=== PATIENT | male | born 1975 ===

== ENCOUNTER 2021-04-29 11:56 | Outpatient (CLI) | payer MEDICARE, MEDICAID ==
--- NOTE | 2021-04-29 16:17 | XRAY Report ---
PROCEDURE: Shoulder 3 View LT INDICATIONS: L SHOULDER PX TECHNIQUE: 4 views of the shoulder were acquired. COMPARISON: None. FINDINGS: Bones: No fractures or dislocations. No suspicious bony lesions. Visualized ribs appear intact. Soft tissues: No suspicious soft tissue calcifications. IMPRESSION: No evidence acute bony abnormality of the left shoulder. If clinical suspicion and/or symptoms persist, further assessment with repeat plain films or advanced imaging (e.g., CT, MRI, or bone scan) may be helpful for further assessment. Reviewed by: Edson Mujica MD on 04/29/2021 4:16 PM PDT Approved by: Edson Mujica MD on 04/29/2021 4:16 PM PDT Station ID: [id number]
== END 2021-04-29 23:59 ==
LOC: DI.N 11:56
PROVIDERS: ATTEND Physician Assistant
DX: M25.512 Pain in left shoulder (principal)

== ENCOUNTER 2023-03-23 09:47 | Outpatient (CLI) | payer MEDICARE, MEDICAID ==
--- NOTE | 2023-03-23 10:41 | XRAY Report ---
PROCEDURE: Cervical Spine 2 View INDICATIONS: CERVICALGIA, DORSALGIA, SHOULDER PAIN TECHNIQUE: 3 view(s) of the cervical spine were acquired. COMPARISON: None. FINDINGS: Bones: No fractures or dislocations to the T1 level. Mild degenerative disc disease at C5-6 and C7- T1 as evidenced by minimal disc space narrowing. The lateral masses of C1 appear intact on the odonto id view. No suspicious bony lesions. Soft tissues: No prevertebral soft tissue swelling. IMPRESSION: Mild degenerative disc disease at C5-6 and C7-T1 Reviewed by: Usman Toledo on 03/23/2023 10:40 AM PDT Approved by: Usman Toledo on 03/23/2023 10:40 AM PDT Station ID: [id number]
--- NOTE | 2023-03-23 10:47 | XRAY Report ---
PROCEDURE: Shoulder 3 View BILAT INDICATIONS: SHOULDER PAIN TECHNIQUE: 4 views of the shoulder were acquired. COMPARISON: 04/29/2021 FINDINGS: Bones: The right acromioclavicular joint has no radiographic abnormality. The left acromioclavicular joint demonstrates 7 mm superior displacement consistent with a type II stranding. No suspicious yol[place] lesions. Visualized ribs appear intact. Soft tissues: No suspicious soft tissue calcifications. The visualized lungs are within normal limi ts. IMPRESSION: 1. Normal right acromioclavicular joint. Next line 2. Left AC joint 7 mm superior displacement consistent with a type II strain. Reviewed by: Usman Toledo on 03/23/2023 10:46 AM PDT Approved by: Usman Toledo on 03/23/2023 10:46 AM PDT Station ID: [id number]
--- NOTE | 2023-03-23 10:48 | XRAY Report ---
PROCEDURE: Lumbar Spine 2 View INDICATIONS: CERVICALGIA, DORSALGIA, SHOULDER PAIN TECHNIQUE: 3 views of the lumbar spine were acquired. COMPARISON: None. FINDINGS: Bones: 5 [id number] vertebrae are present. There is normal bony alignment. No vertebral body compression fractures. No suspicious bony lesions. Soft tissues: Overlying bowel gas pattern is normal. No suspicious soft tissue calcifications. IMPRESSION: Normal lumbar spine Reviewed by: Usman Toledo on 03/23/2023 10:47 AM PDT Approved by: Usman Toledo on 03/23/2023 10:47 AM PDT Station ID: [id number]
--- NOTE | 2023-03-23 10:51 | XRAY Report ---
PROCEDURE: Thoracic Spine 2 View INDICATIONS: CERVICALGIA, DORSALGIA, SHOULDER PAIN TECHNIQUE: 2 views of the thoracic spine were acquired. COMPARISON: None. FINDINGS: Bones: No fractures or dislocations. No suspicious bony lesions. Leftward curvature of the cervicot horacic spine with a Jiang angle of 10 degrees. 12 pairs of ribs are noted, and appear intact where vi sualized. Soft tissues: No paravertebral stripe thickening. IMPRESSION: No acute bony abnormality. No significant degenerative change. Dextroscoliosis of the cervicothoracic spine. Reviewed by: Usman Toledo on 03/23/2023 10:49 AM PDT Approved by: Usman Toledo on 03/23/2023 10:49 AM PDT Station ID: [id number]
== END 2023-03-23 09:48 | disposition home or self-care (01) ==
LOC: DI 09:47
PROVIDERS: ATTEND Internal Medicine
DX: M54.2 Cervicalgia (principal); M54.6 Pain in thoracic spine; M54.50 Low back pain, unspecified; M25.511 Pain in right shoulder; S43.102A Unspecified dislocation of left acromioclavicular joint, initial encounter

== ENCOUNTER 2023-07-20 08:15 | Outpatient (CLI) | payer MEDICARE, MEDICAID ==
--- NOTE | 2023-07-20 22:49 | XRAY Report ---
PROCEDURE: Shoulder 1 View LT INDICATIONS: LEFT SHOULDE PAIN TECHNIQUE: Single axillary view of the shoulder were acquired. COMPARISON: 04/29/2021 FINDINGS: Bones: Single axillary view of the left shoulder demonstrates mild cortical irregularity of the post erior left humeral head. No definite acute fractures seen. Normal glenohumeral alignment. No suspicio us osseous lesions. Soft tissues: No suspicious soft tissue calcifications. IMPRESSION: No acute fracture or dislocation seen on this single axillary view of the left shoulder. Mild cortica l irregularity of the posterior left humeral head possibly related to remote anterior shoulder disloc ation. Reviewed by: Newton Lomax MD on 07/20/2023 10:48 PM PST Approved by: Newton Lomax MD on 07/20/2023 10:48 PM PST Station ID: [id number]
== END 2023-07-20 23:59 | disposition home or self-care (01) ==
LOC: DI.WOS 08:15
PROVIDERS: ATTEND Physician Assistant Surgical
DX: M25.512 Pain in left shoulder (principal)